=== PATIENT | male | born 1985 | race Caucasian/White ===

== ENCOUNTER 2020-12-02 14:24 | Inpatient (IN) | payer OTHER ==
[2020-12-02 16:09] VITALS: BMI 28.1
[2020-12-02] MEDS ORDERED: METHOCARBAMOL 500 MG TABLET PO PRN (18:12)
[2020-12-02] MEDS ORDERED: MAG HYDROX/AL HYDROX/SIMETH 30 ML UNIT-DOSE CUP PO PRN (18:12)
[2020-12-02] MEDS ORDERED: BISMUTH SUBSALICYLATE 524 MG/30 ML PO PRN (18:12)
[2020-12-02] MEDS ORDERED: MAGNESIUM HYDROX 2400MG/30ML ORAL SUSPENSION 30 ML CUP PO PRN (18:12)
[2020-12-02] MEDS ORDERED: MENTHOL/PHENOL 1 EACH UD MM PRN (18:12)
[2020-12-02] MEDS ORDERED: ONDANSETRON *ODT* 4 MG TABLET SL PRN (18:12)
[2020-12-02] MEDS ORDERED: hydrOXYzine PAMOATE 25 MG CAPSULE (FP) PO PRN (18:12)
[2020-12-02] MEDS ORDERED: IBUPROFEN 400 MG TABLET (FP) PO PRN (18:12)
[2020-12-02] MEDS ORDERED: MAGNESIUM CITRATE 300 ML BOTTLE PO PRN (18:12)
[2020-12-02] MEDS ORDERED: NICOTINE POLACRILEX 2 MG GUM BUC PRN (18:12)
[2020-12-02] MEDS ORDERED: ACETAMINOPHEN 325 MG TABLET (FP) PO PRN ×2 (18:12)
[2020-12-02] MEDS: diazePAM 5 MG TABLET PO SCH ×2 (19:43→23:17)
[2020-12-02] MEDS: diazePAM 5 MG TABLET PO PRN (19:50)
[2020-12-02] MEDS: MELATONIN 5 MG TABLETS PO SCH (23:15)
[2020-12-02] MEDS: THIAMINE HCL 100 MG TABLET (FP) PO SCH (23:16)
[2020-12-03] MEDS: diazePAM 5 MG TABLET PO SCH ×4 (06:21→23:00)
[2020-12-03 09:54] LABS: HEMATOCRIT 37.9 % (35.4-49); MCH 30.5 pg (25.7-33.7); MCHC 34.3 g/dl (32.0-35.9); MEAN PLT VOLUME 9.2 fl (7.5-11.1); PLATELET COUNT 228 K/MM3 (134-434); RBC 4.26 M/mm3 (4.00-5.60); RDW 13.6 % (11.9-15.9); WHITE BLOOD COUNT 7.6 K/mm3 (4.0-10.0)
[2020-12-03 09:57] LABS: BLOOD UREA NITROGEN 9.5 mg/dL (7-18)
[2020-12-03 09:59] LABS: ALBUMIN 3.3 g/dl (3.4-5.0)
[2020-12-03] MEDS ORDERED: methaDONE HCL 10 MG TABLET (FOR DETOX USE ONLY) PO ONE (10:00)
[2020-12-03 10:02] LABS: CALCIUM 8.8 mg/dL (8.5-10.1)
[2020-12-03 10:08] LABS: BILIRUBIN,TOTAL 0.2 mg/dL (0.2-1); CREATININE 0.8 mg/dL (0.55-1.3)
[2020-12-03] MEDS: PRENATAL VITAMINS W/ FOLIC ACID TABLET (FP) PO SCH (11:36)
[2020-12-03] MEDS: THIAMINE HCL 100 MG TABLET (FP) PO SCH (23:00)
[2020-12-03] MEDS: MELATONIN 5 MG TABLETS PO SCH (23:00)
[2020-12-04] MEDS: diazePAM 5 MG TABLET PO SCH ×3 (06:48→22:57)
[2020-12-04] MEDS ORDERED: methaDONE HCL 10 MG TABLET PO SCH (09:00)
[2020-12-04] MEDS ORDERED: methaDONE 40 MG, methaDONE 10 MG PO ONE (09:30)
[2020-12-04] MEDS ORDERED: methaDONE HCL 10 MG TABLET (FOR DETOX USE ONLY) PO ONE (10:00)
[2020-12-04] MEDS: PRENATAL VITAMINS W/ FOLIC ACID TABLET (FP) PO SCH (10:17)
[2020-12-04] MEDS ORDERED: methaDONE HCL 10 MG TABLET ONE (10:18)
[2020-12-04] MEDS ORDERED: methaDONE HCL 40 MG DISPERSABLE TABLET ONE (10:19)
[2020-12-04] MEDS: diazePAM 5 MG TABLET PO PRN (17:44)
[2020-12-04] MEDS: MELATONIN 5 MG TABLETS PO SCH (22:57)
[2020-12-04] MEDS: THIAMINE HCL 100 MG TABLET (FP) PO SCH (22:57)
[2020-12-05] MEDS ORDERED: methaDONE HCL 10 MG TABLET ONE (04:51)
[2020-12-05] MEDS ORDERED: methaDONE HCL 40 MG DISPERSABLE TABLET ONE (04:52)
[2020-12-05] MEDS: methaDONE 40 MG, methaDONE 10 MG PO SCH (06:02)
[2020-12-05] MEDS: diazePAM 5 MG TABLET PO SCH ×2 (06:02→17:56)
[2020-12-05] MEDS ORDERED: methaDONE HCL 10 MG TABLET (FOR DETOX USE ONLY) PO ONE (10:00)
[2020-12-05] MEDS: PRENATAL VITAMINS W/ FOLIC ACID TABLET (FP) PO SCH (10:40)
[2020-12-05] MEDS: diazePAM 5 MG TABLET PO PRN (10:41)
[2020-12-05 21:17] VITALS: PULSE 66
[2020-12-05] MEDS: MELATONIN 5 MG TABLETS PO SCH (22:29)
[2020-12-05] MEDS: THIAMINE HCL 100 MG TABLET (FP) PO SCH (22:29)
[2020-12-06] MEDS ORDERED: methaDONE HCL 10 MG TABLET ONE (04:36)
[2020-12-06] MEDS ORDERED: methaDONE HCL 40 MG DISPERSABLE TABLET ONE (04:36)
[2020-12-06] MEDS: methaDONE 40 MG, methaDONE 10 MG PO SCH (05:07)
[2020-12-06] MEDS ORDERED: diazePAM 5 MG TABLET PO ONE (06:00)
[2020-12-06 06:48] VITALS: BP 101/70; TEMP 98.7
== END 2020-12-06 08:55 | disposition home or self-care (01) | DRG 773 ==
LOC: YASAS 14:24 → Y6N 18:23
PROVIDERS: ADMIT Allergy & Immunology; ATTEND Allergy & Immunology
PROC: HZ2ZZZZ Detoxification Services for Substance Abuse Treatment (ICD-10-PCS; principal; 2020-12-02)
DX: F11.23 Opioid dependence with withdrawal (principal); F13.20 Sedative, hypnotic or anxiolytic dependence, uncomplicated; F14.10 Cocaine abuse, uncomplicated; F12.20 Cannabis dependence, uncomplicated; F17.210 Nicotine dependence, cigarettes, uncomplicated; F90.9 Attention-deficit hyperactivity disorder, unspecified type; F41.9 Anxiety disorder, unspecified; Z86.19 Personal history of other infectious and parasitic diseases; Z59.0 Homelessness
CPT/HCPCS: 11042; 11045; 15271; 15272; 36415; 80053; 85027; 86780; C9803; Q4196; U0003; U0005

== ENCOUNTER 2021-04-19 22:14 | Inpatient (IN) | payer OTHER ==
[2021-04-19 22:40] VITALS: BMI 24.0
[2021-04-19] MEDS ORDERED: MAGNESIUM CITRATE 300 ML BOTTLE PO PRN (23:01)
[2021-04-19] MEDS ORDERED: LOPERAMIDE HCL 2 MG CAPSULE PO PRN (23:01)
[2021-04-19] MEDS ORDERED: MENTHOL/PHENOL 1 EACH UD MM PRN (23:01)
[2021-04-19] MEDS ORDERED: BISMUTH SUBSALICYLATE 524 MG/30 ML PO PRN (23:01)
[2021-04-19] MEDS ORDERED: ACETAMINOPHEN 325 MG TABLET (FP) PO PRN ×2 (23:01)
[2021-04-19] MEDS ORDERED: MAGNESIUM HYDROX 2400MG/30ML ORAL SUSPENSION 30 ML CUP PO PRN (23:01)
[2021-04-19] MEDS ORDERED: ONDANSETRON *ODT* 4 MG TABLET SL PRN (23:01)
[2021-04-19] MEDS ORDERED: MAG HYDROX/AL HYDROX/SIMETH 30 ML UNIT-DOSE CUP PO PRN (23:01)
[2021-04-19] MEDS ORDERED: BUPRENORPHINE HCL 2 MG TAB.SUBL SL ONE (23:05)
[2021-04-19] MEDS ORDERED: cloNIDine HCL 0.1 MG TABLET PO PRN (23:09)
[2021-04-20] MEDS ORDERED: BUPRENORPHINE HCL 2 MG TAB.SUBL SL ONE (01:45)
[2021-04-20] MEDS ORDERED: BUPRENORPHINE/NALOXONE 8 MG/2 MG FILM PACKET SL SCH (10:00)
[2021-04-20] MEDS ORDERED: methaDONE HCL 10 MG TABLET (FOR DETOX USE ONLY) PO ONE (11:00)
[2021-04-20 11:52] LABS: HEMATOCRIT 39.5 % (35.4-49); HEMOGLOBIN 13.3 GM/dL (11.7-16.9); MCH 29.4 pg (25.7-33.7); MCHC 33.8 g/dl (32.0-35.9); MEAN CELL VOLUME 86.8 fl (80-96); MEAN PLT VOLUME 10.4 fl (7.5-11.1); PLATELET COUNT 304 10^3/uL (134-434); RBC 4.54 M/mm3 (4.00-5.60); RDW 13.3 % (11.9-15.9); WHITE BLOOD COUNT 6.4 K/mm3 (4.0-10.0)
[2021-04-20] MEDS: PRENATAL VITAMINS W/ FOLIC ACID TABLET (FP) PO SCH (12:10)
[2021-04-20] MEDS: NICOTINE 14 MG/24 HOURS TOPICAL PATCH TD SCH (12:11)
[2021-04-20] MEDS: METHOCARBAMOL 500 MG TABLET PO PRN (12:12)
[2021-04-20 12:17] LABS: ALBUMIN 3.2 g/dl (3.4-5.0); BLOOD UREA NITROGEN 10.6 mg/dL (7-18); CALCIUM 8.7 mg/dL (8.5-10.1)
[2021-04-20 12:20] LABS: CREATININE 0.7 mg/dL (0.55-1.3)
[2021-04-20 12:22] LABS: BILIRUBIN,TOTAL 0.3 mg/dL (0.2-1)
[2021-04-20] MEDS: diazePAM 5 MG TABLET PO PRN ×2 (14:29→22:32)
[2021-04-20] MEDS: IBUPROFEN 400 MG TABLET (FP) PO PRN (22:31)
[2021-04-20] MEDS: cloNIDine HCL 0.1 MG TABLET PO PRN (22:31)
[2021-04-20] MEDS: THIAMINE HCL 100 MG TABLET (FP) PO SCH (22:31)
[2021-04-20] MEDS: MELATONIN 5 MG TABLETS PO SCH (22:32)
[2021-04-21] MEDS ORDERED: methaDONE HCL 10 MG TABLET (FOR DETOX USE ONLY) ONE (09:59)
[2021-04-21] MEDS ORDERED: EMTRICITABINE 200MG/TENOFOVIR 300MG PO SCH (10:00)
[2021-04-21] MEDS: METHOCARBAMOL 500 MG TABLET PO PRN ×2 (11:01→22:33)
[2021-04-21] MEDS: diazePAM 5 MG TABLET PO PRN ×2 (11:01→22:33)
[2021-04-21] MEDS: hydrOXYzine PAMOATE 25 MG CAPSULE (FP) PO PRN ×2 (11:01→22:33)
[2021-04-21] MEDS: NICOTINE 14 MG/24 HOURS TOPICAL PATCH TD SCH (11:02)
[2021-04-21] MEDS: PRENATAL VITAMINS W/ FOLIC ACID TABLET (FP) PO SCH (11:02)
[2021-04-21] MEDS: THIAMINE HCL 100 MG TABLET (FP) PO SCH (22:33)
[2021-04-21] MEDS: RALTEGRAVIR 400 MG PO SCH (22:33)
[2021-04-21] MEDS: MELATONIN 5 MG TABLETS PO SCH (22:33)
[2021-04-22] MEDS: diazePAM 5 MG TABLET PO PRN ×4 (06:09→22:28)
[2021-04-22] MEDS: IBUPROFEN 400 MG TABLET (FP) PO PRN (06:10)
[2021-04-22] MEDS ORDERED: methaDONE HCL 10 MG TABLET (FOR DETOX USE ONLY) PO ONE ×2 (10:00→11:21)
[2021-04-22] MEDS: PRENATAL VITAMINS W/ FOLIC ACID TABLET (FP) PO SCH (10:25)
[2021-04-22] MEDS: NICOTINE 14 MG/24 HOURS TOPICAL PATCH TD SCH (10:25)
[2021-04-22] MEDS: RALTEGRAVIR 400 MG PO SCH ×2 (10:26→22:28)
[2021-04-22] MEDS: PATIENT,S OWN MED:EMTRICITABINE 200MG/TENOFOVIR 300MG PO SCH (10:38)
[2021-04-22] MEDS ORDERED: diazePAM 5 MG TABLET PO ONE (11:22)
[2021-04-22] MEDS: cloNIDine HCL 0.1 MG TABLET PO PRN (22:27)
[2021-04-22] MEDS: METHOCARBAMOL 500 MG TABLET PO PRN (22:27)
[2021-04-22] MEDS: MELATONIN 5 MG TABLETS PO SCH (22:27)
[2021-04-22] MEDS: THIAMINE HCL 100 MG TABLET (FP) PO SCH (22:27)
[2021-04-23] MEDS: diazePAM 5 MG TABLET PO PRN ×3 (08:47→22:11)
[2021-04-23] MEDS ORDERED: methaDONE HCL 10 MG TABLET (FOR DETOX USE ONLY) ONE (09:53)
[2021-04-23] MEDS: RALTEGRAVIR 400 MG PO SCH ×2 (10:32→22:10)
[2021-04-23] MEDS: PATIENT,S OWN MED:EMTRICITABINE 200MG/TENOFOVIR 300MG PO SCH (10:32)
[2021-04-23] MEDS: NICOTINE 14 MG/24 HOURS TOPICAL PATCH TD SCH (10:33)
[2021-04-23] MEDS: METHOCARBAMOL 500 MG TABLET PO PRN ×2 (10:33→22:10)
[2021-04-23] MEDS: PRENATAL VITAMINS W/ FOLIC ACID TABLET (FP) PO SCH (10:35)
[2021-04-23] MEDS: IBUPROFEN 400 MG TABLET (FP) PO PRN (22:10)
[2021-04-23] MEDS: hydrOXYzine PAMOATE 25 MG CAPSULE (FP) PO PRN (22:10)
[2021-04-23] MEDS: THIAMINE HCL 100 MG TABLET (FP) PO SCH (22:10)
[2021-04-23] MEDS: MELATONIN 5 MG TABLETS PO SCH (22:11)
[2021-04-24] MEDS ORDERED: methaDONE HCL 10 MG TABLET (FOR DETOX USE ONLY) PO ONE (10:00)
[2021-04-24] MEDS: RALTEGRAVIR 400 MG PO SCH ×2 (10:02→22:06)
[2021-04-24] MEDS: PATIENT,S OWN MED:EMTRICITABINE 200MG/TENOFOVIR 300MG PO SCH (10:02)
[2021-04-24] MEDS: PRENATAL VITAMINS W/ FOLIC ACID TABLET (FP) PO SCH (10:02)
[2021-04-24] MEDS: METHOCARBAMOL 500 MG TABLET PO PRN ×2 (10:03→22:08)
[2021-04-24] MEDS: IBUPROFEN 400 MG TABLET (FP) PO PRN (10:03)
[2021-04-24] MEDS: hydrOXYzine PAMOATE 25 MG CAPSULE (FP) PO PRN ×2 (10:05→22:08)
[2021-04-24] MEDS: diazePAM 5 MG TABLET PO PRN ×2 (10:05→22:09)
[2021-04-24] MEDS: NICOTINE 14 MG/24 HOURS TOPICAL PATCH TD SCH (10:07)
[2021-04-24 21:47] VITALS: BP 117/78; PULSE 105; TEMP 98
[2021-04-24] MEDS: MELATONIN 5 MG TABLETS PO SCH (22:06)
[2021-04-24] MEDS: THIAMINE HCL 100 MG TABLET (FP) PO SCH (22:06)
[2021-04-25] MEDS: IBUPROFEN 400 MG TABLET (FP) PO PRN (05:59)
== END 2021-04-25 07:00 | disposition home or self-care (01) | DRG 773 ==
LOC: YASAS 22:14 → Y3N 04-20 00:25 → UNDOADMIN 04-20 00:25
PROVIDERS: ADMIT Allergy & Immunology; ATTEND Allergy & Immunology
PROC: HZ2ZZZZ Detoxification Services for Substance Abuse Treatment (ICD-10-PCS; principal; 2021-04-20)
DX: F11.23 Opioid dependence with withdrawal (principal); F14.20 Cocaine dependence, uncomplicated; F12.20 Cannabis dependence, uncomplicated; F17.210 Nicotine dependence, cigarettes, uncomplicated; F41.9 Anxiety disorder, unspecified; Z86.19 Personal history of other infectious and parasitic diseases; Z59.01 Sheltered homelessness
CPT/HCPCS: 36415; 80053; 85027; 86780; C9803; J0735; Q0162; U0003; U0005

== ENCOUNTER 2021-05-09 12:13 | Inpatient (IN) | payer OTHER ==
[2021-05-09 13:09] VITALS: BMI 26.1
[2021-05-09] MEDS ORDERED: MAGNESIUM CITRATE 300 ML BOTTLE PO PRN (13:51)
[2021-05-09] MEDS ORDERED: MAGNESIUM HYDROX 2400MG/30ML ORAL SUSPENSION 30 ML CUP PO PRN (13:51)
[2021-05-09] MEDS ORDERED: ACETAMINOPHEN 325 MG TABLET (FP) PO PRN ×2 (13:51)
[2021-05-09] MEDS ORDERED: MAG HYDROX/AL HYDROX/SIMETH 30 ML UNIT-DOSE CUP PO PRN (13:51)
[2021-05-09] MEDS ORDERED: IBUPROFEN 400 MG TABLET (FP) PO PRN (13:51)
[2021-05-09] MEDS ORDERED: BISMUTH SUBSALICYLATE 524 MG/30 ML PO PRN (13:51)
[2021-05-09] MEDS ORDERED: MENTHOL/PHENOL 1 EACH UD MM PRN (13:51)
[2021-05-09] MEDS ORDERED: ONDANSETRON *ODT* 4 MG TABLET SL PRN (13:51)
[2021-05-09] MEDS: BACITRACIN 15 GM TUBE TOPICAL OINTMENT TP SCH ×2 (15:31→22:58)
[2021-05-09] MEDS: METHOCARBAMOL 500 MG TABLET PO PRN (19:29)
[2021-05-09] MEDS: hydrOXYzine PAMOATE 25 MG CAPSULE (FP) PO PRN ×2 (19:29→22:57)
[2021-05-09] MEDS: THIAMINE HCL 100 MG TABLET (FP) PO SCH (22:57)
[2021-05-09] MEDS: MELATONIN 5 MG TABLETS PO SCH (22:57)
[2021-05-10] MEDS ORDERED: methaDONE HCL 10 MG TABLET (FOR DETOX USE ONLY) PO ONE (09:19)
[2021-05-10] MEDS ORDERED: diazePAM 5 MG TABLET PO PRN (09:19)
[2021-05-10] MEDS ORDERED: cloNIDine HCL 0.1 MG TABLET PO PRN (09:19)
[2021-05-10] MEDS: diazePAM 5 MG TABLET PO SCH ×3 (10:10→22:25)
[2021-05-10] MEDS: METHOCARBAMOL 500 MG TABLET PO PRN (10:10)
[2021-05-10] MEDS: PRENATAL VITAMINS W/ FOLIC ACID TABLET (FP) PO SCH (10:10)
[2021-05-10] MEDS: BACITRACIN 15 GM TUBE TOPICAL OINTMENT TP SCH ×2 (10:11→22:33)
[2021-05-10] MEDS: NICOTINE 14 MG/24 HOURS TOPICAL PATCH TD SCH (10:11)
[2021-05-10 12:18] LABS: HEMATOCRIT 40.5 % (35.4-49); HEMOGLOBIN 13.9 GM/dL (11.7-16.9); MCH 30.2 pg (25.7-33.7); MCHC 34.3 g/dl (32.0-35.9); MEAN CELL VOLUME 87.9 fl (80-96); MEAN PLT VOLUME 9.3 fl (7.5-11.1); PLATELET COUNT 300 10^3/uL (134-434); RBC 4.61 M/mm3 (4.00-5.60); RDW 14.5 % (11.9-15.9); WHITE BLOOD COUNT 4.5 K/mm3 (4.0-10.0)
[2021-05-10 12:19] LABS: CALCIUM 8.9 mg/dL (8.5-10.1)
[2021-05-10 12:20] LABS: ALBUMIN 3.4 g/dl (3.4-5.0)
[2021-05-10 12:23] LABS: BLOOD UREA NITROGEN 10.1 mg/dL (7-18)
[2021-05-10 12:25] LABS: BILIRUBIN,TOTAL 0.3 mg/dL (0.2-1); TOT PROT 7.2 g/dl (6.4-8.2)
[2021-05-10 12:26] LABS: CREATININE 0.8 mg/dL (0.55-1.3)
[2021-05-10] MEDS: amLODIPine BESYLATE 5 MG TABLET (FP) PO SCH (14:27)
[2021-05-10] MEDS: MELATONIN 5 MG TABLETS PO SCH (22:25)
[2021-05-10] MEDS: THIAMINE HCL 100 MG TABLET (FP) PO SCH (22:25)
[2021-05-11] MEDS: diazePAM 5 MG TABLET PO SCH ×4 (06:14→22:24)
[2021-05-11] MEDS ORDERED: methaDONE HCL 10 MG TABLET (FOR DETOX USE ONLY) ONE (09:40)
[2021-05-11] MEDS: PRENATAL VITAMINS W/ FOLIC ACID TABLET (FP) PO SCH (10:28)
[2021-05-11] MEDS: amLODIPine BESYLATE 5 MG TABLET (FP) PO SCH (10:30)
[2021-05-11] MEDS: METHOCARBAMOL 500 MG TABLET PO PRN (10:30)
[2021-05-11] MEDS: hydrOXYzine PAMOATE 25 MG CAPSULE (FP) PO PRN (10:30)
[2021-05-11] MEDS: NICOTINE 14 MG/24 HOURS TOPICAL PATCH TD SCH (10:31)
[2021-05-11] MEDS: BACITRACIN 15 GM TUBE TOPICAL OINTMENT TP SCH ×2 (10:44→22:25)
[2021-05-11] MEDS: THIAMINE HCL 100 MG TABLET (FP) PO SCH (22:22)
[2021-05-11] MEDS: MELATONIN 5 MG TABLETS PO SCH (22:25)
[2021-05-12] MEDS: diazePAM 5 MG TABLET PO SCH ×3 (05:59→22:38)
[2021-05-12] MEDS ORDERED: methaDONE HCL 10 MG TABLET (FOR DETOX USE ONLY) PO ONE (10:00)
[2021-05-12] MEDS: PRENATAL VITAMINS W/ FOLIC ACID TABLET (FP) PO SCH (10:28)
[2021-05-12] MEDS: hydrOXYzine PAMOATE 25 MG CAPSULE (FP) PO PRN ×2 (10:28→15:09)
[2021-05-12] MEDS: BACITRACIN 15 GM TUBE TOPICAL OINTMENT TP SCH ×2 (10:28→22:36)
[2021-05-12] MEDS: NICOTINE 14 MG/24 HOURS TOPICAL PATCH TD SCH (10:32)
[2021-05-12] MEDS: amLODIPine BESYLATE 5 MG TABLET (FP) PO SCH (10:35)
[2021-05-12] MEDS ORDERED: EMTRICITABINE 200MG/TENOFOVIR 300MG PO SCH (14:45)
[2021-05-12] MEDS ORDERED: MELATONIN 5 MG TABLETS PO SCH (22:00)
[2021-05-12] MEDS: THIAMINE HCL 100 MG TABLET (FP) PO SCH (22:37)
[2021-05-12] MEDS: RALTEGRAVIR POTASSIUM 400 MG PO SCH (22:38)
[2021-05-13] MEDS ORDERED: diazePAM 5 MG TABLET PO SCH (06:00)
[2021-05-13] MEDS ORDERED: methaDONE HCL 10 MG TABLET (FOR DETOX USE ONLY) ONE (09:49)
[2021-05-13] MEDS: PRENATAL VITAMINS W/ FOLIC ACID TABLET (FP) PO SCH (10:27)
[2021-05-13] MEDS: NICOTINE 14 MG/24 HOURS TOPICAL PATCH TD SCH (10:30)
[2021-05-13] MEDS: amLODIPine BESYLATE 5 MG TABLET (FP) PO SCH (10:30)
[2021-05-13] MEDS: RALTEGRAVIR POTASSIUM 400 MG PO SCH (10:31)
[2021-05-13] MEDS: BACITRACIN 15 GM TUBE TOPICAL OINTMENT TP SCH (10:50)
[2021-05-13] MEDS ORDERED: NICOTINE 10 MG CARTRIDGE (INHALER) IH PRN (13:04)
[2021-05-13 14:18] VITALS: BP 107/69; PULSE 100; TEMP 97.4
[2021-05-14] MEDS ORDERED: diazePAM 5 MG TABLET PO ONE (06:00)
[2021-05-14] MEDS ORDERED: methaDONE HCL 10 MG TABLET (FOR DETOX USE ONLY) PO ONE (10:00)
== END 2021-05-13 15:48 | disposition left against medical advice (07) | DRG 770 ==
LOC: YASAS 12:13 → Y6N 14:41
PROVIDERS: ADMIT Allergy & Immunology; ATTEND Allergy & Immunology
PROC: HZ2ZZZZ Detoxification Services for Substance Abuse Treatment (ICD-10-PCS; principal; 2021-05-09)
DX: F11.23 Opioid dependence with withdrawal (principal); F13.20 Sedative, hypnotic or anxiolytic dependence, uncomplicated; F14.20 Cocaine dependence, uncomplicated; F12.20 Cannabis dependence, uncomplicated; F17.210 Nicotine dependence, cigarettes, uncomplicated; F19.282 Other psychoactive substance dependence with psychoactive substance-induced sleep disorder; F31.9 Bipolar disorder, unspecified; F41.9 Anxiety disorder, unspecified; F90.9 Attention-deficit hyperactivity disorder, unspecified type; F43.10 Post-traumatic stress disorder, unspecified; I10 Essential (primary) hypertension; Z62.810 Personal history of physical and sexual abuse in childhood; Z86.19 Personal history of other infectious and parasitic diseases; Z88.0 Allergy status to penicillin; Z59.00 Homelessness unspecified
CPT/HCPCS: 36415; 80053; 85027; 86780; C9803; J0735; U0003; U0005

== ENCOUNTER 2021-07-13 13:35 | Inpatient (IN) | payer OTHER ==
[2021-07-13] MEDS ORDERED: BISMUTH SUBSALICYLATE 262 MG/15 ML BTL PO PRN (14:06)
[2021-07-13] MEDS ORDERED: IBUPROFEN 400 MG TABLET (FP) PO PRN (14:06)
[2021-07-13] MEDS ORDERED: BUPRENORPHINE HCL 150 MCG, BUPRENORPHINE HCL 75 MCG BC ONE ×2 (14:06→18:45)
[2021-07-13] MEDS ORDERED: MAGNESIUM HYDROX 2400MG/30ML ORAL SUSPENSION 30 ML CUP PO PRN (14:06)
[2021-07-13] MEDS ORDERED: ACETAMINOPHEN 325 MG TABLET (FP) PO PRN ×2 (14:06)
[2021-07-13] MEDS ORDERED: ONDANSETRON *ODT* 4 MG TABLET SL PRN (14:06)
[2021-07-13] MEDS ORDERED: MENTHOL/PHENOL 1 EACH UD MM PRN (14:06)
[2021-07-13] MEDS ORDERED: MAGNESIUM CITRATE 300 ML BOTTLE PO PRN (14:06)
[2021-07-13] MEDS ORDERED: MAG HYDROX/AL HYDROX/SIMETH 30 ML UNIT-DOSE CUP PO PRN (14:06)
[2021-07-13] MEDS ORDERED: NICOTINE 10 MG CARTRIDGE (INHALER) IH PRN (14:06)
[2021-07-13 14:18] VITALS: BMI 24.9
[2021-07-13] MEDS ORDERED: TENOFOVIR DISOPROXIL FUMARATE 300 MG TABLET PO SCH (16:15)
[2021-07-13] MEDS ORDERED: EMTRICITABINE 200 MG CAPSULE PO SCH (16:15)
[2021-07-13 17:32] LABS: HEMATOCRIT 42.9 % (35.4-49); HEMOGLOBIN 14.1 GM/dL (11.7-16.9); MCH 29.2 pg (25.7-33.7); MEAN CELL VOLUME 88.6 fl (80-96); MEAN PLT VOLUME 8.9 fl (7.5-11.1); PLATELET COUNT 351 10^3/uL (134-434); RBC 4.84 M/mm3 (4.00-5.60); RDW 13.8 % (11.9-15.9); WHITE BLOOD COUNT 7.3 K/mm3 (4.0-10.0)
[2021-07-13 18:02] LABS: BLOOD UREA NITROGEN 10.9 mg/dL (7-18)
[2021-07-13 18:07] LABS: BILIRUBIN,TOTAL 0.6 mg/dL (0.2-1); TOT PROT 7.8 g/dl (6.4-8.2)
[2021-07-13 18:09] LABS: CALCIUM 9.5 mg/dL (8.5-10.1)
[2021-07-13] MEDS ORDERED: BUPRENORPHINE HCL 150 MCG FILM BC ONE (19:24)
[2021-07-13] MEDS ORDERED: BUPRENORPHINE HCL 75 MCG FILM BC ONE (19:25)
[2021-07-13] MEDS: PRENATAL VITAMINS W/ FOLIC ACID TABLET (FP) PO SCH (19:38)
[2021-07-13] MEDS: hydrOXYzine PAMOATE 25 MG CAPSULE (FP) PO SCH ×2 (19:38→22:32)
[2021-07-13] MEDS: NICOTINE 14 MG/24 HOURS TOPICAL PATCH TD SCH (19:39)
[2021-07-13] MEDS ORDERED: MELATONIN 5 MG TABLETS PO SCH (22:00)
[2021-07-13] MEDS: THIAMINE HCL 100 MG TABLET (FP) PO SCH (22:32)
[2021-07-13] MEDS: RALTEGRAVIR POTASSIUM 400 MG TAB PO SCH (22:32)
[2021-07-14] MEDS ORDERED: BUPRENORPHINE HCL 150 MCG FILM BC ONE ×2 (04:32→17:25)
[2021-07-14] MEDS ORDERED: BUPRENORPHINE HCL 75 MCG FILM BC ONE ×2 (04:33→17:26)
[2021-07-14] MEDS: BUPRENORPHINE HCL 150 MCG, BUPRENORPHINE HCL 75 MCG BC SCH ×2 (06:14→17:41)
[2021-07-14] MEDS: hydrOXYzine PAMOATE 25 MG CAPSULE (FP) PO SCH (06:14)
[2021-07-14] MEDS: PRENATAL VITAMINS W/ FOLIC ACID TABLET (FP) PO SCH (10:35)
[2021-07-14] MEDS: RALTEGRAVIR POTASSIUM 400 MG TAB PO SCH ×2 (10:35→22:41)
[2021-07-14] MEDS: EMTRICITABINE 200MG/TENOFOVIR 300MG PO SCH (10:36)
[2021-07-14] MEDS: cloNIDine HCL 0.1 MG TABLET PO PRN ×3 (10:37→22:41)
[2021-07-14] MEDS: diazePAM 5 MG TABLET PO PRN ×3 (10:37→22:42)
[2021-07-14] MEDS: NICOTINE 14 MG/24 HOURS TOPICAL PATCH TD SCH (10:38)
[2021-07-14] MEDS: hydrOXYzine PAMOATE 50 MG CAPSULE (FP) PO SCH ×5 (10:39→22:42)
[2021-07-14 15:58] LABS: HIV INTERPRETATION NEGATIVE (NEGATIVE)
[2021-07-14] MEDS: MELATONIN 5 MG TABLETS PO SCH (22:41)
[2021-07-14] MEDS: THIAMINE HCL 100 MG TABLET (FP) PO SCH (22:41)
[2021-07-15] MEDS: hydrOXYzine PAMOATE 50 MG CAPSULE (FP) PO SCH ×5 (06:26→23:19)
[2021-07-15] MEDS: diazePAM 5 MG TABLET PO PRN ×4 (06:28→22:29)
[2021-07-15] MEDS: BUPRENORPHINE HCL 450 MCG FILM BC SCH ×2 (06:32→18:24)
[2021-07-15] MEDS: RALTEGRAVIR POTASSIUM 400 MG TAB PO SCH ×2 (09:38→23:18)
[2021-07-15] MEDS: PRENATAL VITAMINS W/ FOLIC ACID TABLET (FP) PO SCH (09:38)
[2021-07-15] MEDS: NICOTINE 14 MG/24 HOURS TOPICAL PATCH TD SCH (09:38)
[2021-07-15] MEDS: EMTRICITABINE 200MG/TENOFOVIR 300MG PO SCH (09:39)
[2021-07-15] MEDS: METHOCARBAMOL 500 MG TABLET PO PRN (22:28)
[2021-07-15] MEDS: MELATONIN 5 MG TABLETS PO SCH (23:18)
[2021-07-15] MEDS: THIAMINE HCL 100 MG TABLET (FP) PO SCH (23:19)
[2021-07-16] MEDS: BUPRENORPHINE/NALOXONE 4 MG/1 MG FILM PACKET SL SCH ×2 (05:43→17:47)
[2021-07-16] MEDS: diazePAM 5 MG TABLET PO PRN ×3 (05:44→15:17)
[2021-07-16] MEDS: hydrOXYzine PAMOATE 50 MG CAPSULE (FP) PO SCH ×5 (05:50→17:48)
[2021-07-16] MEDS: EMTRICITABINE 200MG/TENOFOVIR 300MG PO SCH (10:38)
[2021-07-16] MEDS: RALTEGRAVIR POTASSIUM 400 MG TAB PO SCH (10:38)
[2021-07-16] MEDS: NICOTINE 14 MG/24 HOURS TOPICAL PATCH TD SCH (10:40)
[2021-07-16] MEDS: PRENATAL VITAMINS W/ FOLIC ACID TABLET (FP) PO SCH (10:40)
[2021-07-16] MEDS: METHOCARBAMOL 500 MG TABLET PO PRN (15:16)
[2021-07-16 18:21] VITALS: BP 127/92; PULSE 108; TEMP 97.3
[2021-07-17] MEDS ORDERED: BUPRENORPHINE/NALOXONE 8 MG/2 MG FILM PACKET SL ONE (06:00)
== END 2021-07-16 18:50 | disposition home or self-care (01) | DRG 773 ==
LOC: YASAS 13:35 → Y3N 15:57
PROVIDERS: ADMIT Allergy & Immunology; ATTEND Allergy & Immunology
PROC: HZ2ZZZZ Detoxification Services for Substance Abuse Treatment (ICD-10-PCS; principal; 2021-07-13)
DX: F11.23 Opioid dependence with withdrawal (principal); F14.20 Cocaine dependence, uncomplicated; F13.20 Sedative, hypnotic or anxiolytic dependence, uncomplicated; F12.20 Cannabis dependence, uncomplicated; F17.210 Nicotine dependence, cigarettes, uncomplicated; F31.9 Bipolar disorder, unspecified; F19.280 Other psychoactive substance dependence with psychoactive substance-induced anxiety disorder; F19.282 Other psychoactive substance dependence with psychoactive substance-induced sleep disorder; F41.9 Anxiety disorder, unspecified; F90.9 Attention-deficit hyperactivity disorder, unspecified type; I10 Essential (primary) hypertension; Z62.810 Personal history of physical and sexual abuse in childhood; Z77.21 Contact with and (suspected) exposure to potentially hazardous body fluids; W46.1XXD Contact with contaminated hypodermic needle, subsequent encounter; Z86.19 Personal history of other infectious and parasitic diseases; Z56.0 Unemployment, unspecified; Z59.00 Homelessness unspecified; Z88.0 Allergy status to penicillin
CPT/HCPCS: 36415; 80053; 85027; 86780; 87389; C9803; J0735; U0003; U0005

== ENCOUNTER 2022-04-12 01:42 | Inpatient (IN) | payer OTHER ==
[2022-04-12 02:20] VITALS: BMI 28.7
[2022-04-12] MEDS ORDERED: IBUPROFEN 400 MG TABLET (FP) PO PRN (02:58)
[2022-04-12] MEDS ORDERED: DICYCLOMINE HCL 10 MG CAPSULE PO PRN (02:58)
[2022-04-12] MEDS ORDERED: ONDANSETRON *ODT* 4 MG TABLET SL PRN (02:58)
[2022-04-12] MEDS ORDERED: BISMUTH SUBSALICYLATE 524 MG/30 ML PO PRN (02:58)
[2022-04-12] MEDS ORDERED: MAGNESIUM HYDROX 2400MG/30ML ORAL SUSPENSION 30 ML CUP PO PRN (02:58)
[2022-04-12] MEDS ORDERED: NALOXONE HCL (KLOXXADO) 8 MG SPRAY NS PRN (02:58)
[2022-04-12] MEDS ORDERED: MAGNESIUM CITRATE 300 ML BOTTLE PO PRN (02:58)
[2022-04-12] MEDS ORDERED: BENZOCAINE/MENTHOL (CHLORASEPTIC ) LOZENGE MM PRN (02:58)
[2022-04-12] MEDS ORDERED: NICOTINE POLACRILEX 2 MG GUM BUC PRN (02:58)
[2022-04-12] MEDS ORDERED: MAG HYDROX/AL HYDROX/SIMETH 30 ML UNIT-DOSE CUP PO PRN (02:58)
[2022-04-12] MEDS ORDERED: ACETAMINOPHEN 325 MG TABLET (FP) PO PRN (02:58)
[2022-04-12] MEDS ORDERED: IBUPROFEN 600 MG TABLET (FP) PO PRN (02:58)
[2022-04-12] MEDS ORDERED: LOPERAMIDE HCL 2 MG CAPSULE PO PRN (02:58)
[2022-04-12] MEDS: METHOCARBAMOL 500 MG TABLET PO PRN (10:08)
[2022-04-12] MEDS: ACETAMINOPHEN 325 MG TABLET (FP) PO PRN ×2 (10:08→17:46)
[2022-04-12] MEDS: PRENATAL VITAMINS W/ FOLIC ACID TABLET (FP) PO SCH (10:09)
[2022-04-12] MEDS: NICOTINE 14 MG/24 HOURS TOPICAL PATCH TD SCH (10:09)
[2022-04-12] MEDS ORDERED: BUPRENORPHINE HCL 150 MCG, BUPRENORPHINE HCL 75 MCG BC PRN (10:12)
[2022-04-12] MEDS ORDERED: BUPRENORPHINE HCL 150 MCG, BUPRENORPHINE HCL 75 MCG BC ONE (10:45)
[2022-04-12] MEDS: diazePAM 5 MG TABLET PO PRN ×2 (10:48→17:44)
[2022-04-12] MEDS ORDERED: cloNIDine HCL 0.1 MG TABLET PO PRN (14:12)
[2022-04-12] MEDS: THIAMINE HCL 100 MG TABLET (FP) PO SCH (22:37)
[2022-04-12] MEDS: MELATONIN 5 MG TABLETS PO SCH (22:37)
[2022-04-13] MEDS ORDERED: BUPRENORPHINE HCL 150 MCG, BUPRENORPHINE HCL 75 MCG BC PRN
[2022-04-13] MEDS: BUPRENORPHINE HCL 150 MCG, BUPRENORPHINE HCL 75 MCG BC SCH ×2 (06:22→18:49)
[2022-04-13] MEDS: METHOCARBAMOL 500 MG TABLET PO PRN (10:14)
[2022-04-13] MEDS: diazePAM 5 MG TABLET PO PRN ×2 (10:15→19:51)
[2022-04-13] MEDS: PRENATAL VITAMINS W/ FOLIC ACID TABLET (FP) PO SCH (10:17)
[2022-04-13] MEDS: NICOTINE 14 MG/24 HOURS TOPICAL PATCH TD SCH (10:18)
[2022-04-13 14:11] LABS: HEMATOCRIT 36.6 % (35.4-49); HEMOGLOBIN 12.5 GM/dL (11.7-16.9); MCH 30.3 pg (25.7-33.7); MEAN PLT VOLUME 11.7 fl (7.5-11.1); PLATELET COUNT 198 10^3/uL (134-434); RBC 4.11 M/mm3 (4.00-5.60); RDW 13.4 % (11.9-15.9); WHITE BLOOD COUNT 5.9 K/mm3 (4.0-10.0)
[2022-04-13 14:30] LABS: ALBUMIN 3.4 g/dl (3.4-5.0)
[2022-04-13 14:31] LABS: BILIRUBIN,TOTAL 0.4 mg/dL (0.2-1)
[2022-04-13 14:32] LABS: CALCIUM 8.9 mg/dL (8.5-10.1); TOT PROT 6.6 g/dl (6.4-8.2)
[2022-04-13 14:33] LABS: CREATININE 0.9 mg/dL (0.55-1.3)
[2022-04-13] MEDS: THIAMINE HCL 100 MG TABLET (FP) PO SCH (22:55)
[2022-04-13] MEDS: MELATONIN 5 MG TABLETS PO SCH (22:55)
[2022-04-14] MEDS ORDERED: BUPRENORPHINE HCL 450 MCG FILM BC PRN
[2022-04-14] MEDS ORDERED: BUPRENORPHINE HCL 450 MCG FILM BC SCH (06:00)
[2022-04-14 06:26] VITALS: BP 120/68; PULSE 61; RESP 17; TEMP 97.5
[2022-04-15] MEDS ORDERED: BUPRENORPHINE/NALOXONE 4 MG/1 MG FILM PACKET SL SCH (06:00)
[2022-04-16] MEDS ORDERED: BUPRENORPHINE/NALOXONE 8 MG/2 MG FILM PACKET SL ONE (06:00)
== END 2022-04-14 08:00 | disposition left against medical advice (07) | DRG 770 ==
LOC: YASAS 01:42 → Y6N 02:49
PROVIDERS: ADMIT Allergy & Immunology; ATTEND Surgery
PROC: HZ2ZZZZ Detoxification Services for Substance Abuse Treatment (ICD-10-PCS; principal; 2022-04-12)
DX: F11.23 Opioid dependence with withdrawal (principal); F14.20 Cocaine dependence, uncomplicated; F17.210 Nicotine dependence, cigarettes, uncomplicated; F41.9 Anxiety disorder, unspecified; F43.10 Post-traumatic stress disorder, unspecified; F90.9 Attention-deficit hyperactivity disorder, unspecified type; I10 Essential (primary) hypertension; Z86.19 Personal history of other infectious and parasitic diseases; Z88.0 Allergy status to penicillin
CPT/HCPCS: 36415; 80053; 85027; 86780; 93005; 93010; C9803-CS; U0003; U0005

== ENCOUNTER 2022-07-18 14:11 | Inpatient (IN) | payer OTHER ==
[2022-07-18 15:04] VITALS: BMI 27.0
[2022-07-18] MEDS ORDERED: P-EPHED 60MG/TRIPROLIDI 2.5MG TABLET PO PRN (16:15)
[2022-07-18] MEDS ORDERED: NICOTINE 10 MG CARTRIDGE (INHALER) IH PRN (16:15)
[2022-07-18] MEDS ORDERED: DICYCLOMINE HCL 10 MG CAPSULE PO PRN (16:15)
[2022-07-18] MEDS ORDERED: BISMUTH SUBSALICYLATE 524 MG/30 ML PO PRN (16:15)
[2022-07-18] MEDS ORDERED: POLYETHYLENE GLYCOL (HEALTHYLAX) 3350 17 GM PACKET PO PRN (16:15)
[2022-07-18] MEDS ORDERED: MAGNESIUM HYDROX 2400MG/30ML ORAL SUSPENSION 30 ML CUP PO PRN (16:15)
[2022-07-18] MEDS ORDERED: MAG HYDROX/AL HYDROX/SIMETH 30 ML UNIT-DOSE CUP PO PRN (16:15)
[2022-07-18] MEDS ORDERED: BENZOCAINE/MENTHOL (CHLORASEPTIC ) LOZENGE MM PRN (16:15)
[2022-07-18] MEDS ORDERED: LOPERAMIDE HCL 2 MG CAPSULE PO PRN (16:15)
[2022-07-18] MEDS ORDERED: hydrOXYzine PAMOATE 25 MG CAPSULE (FP) PO PRN (16:15)
[2022-07-18] MEDS ORDERED: guaiFENesin 200 MG/10 ML 10 ML UNIT-DOSE CUPS PO PRN (16:15)
[2022-07-18] MEDS ORDERED: ONDANSETRON *ODT* 4 MG TABLET SL PRN (16:15)
[2022-07-18] MEDS ORDERED: NALOXONE HCL 0.4 MG/ML VIAL IM PRN (16:15)
[2022-07-18] MEDS ORDERED: ACETAMINOPHEN 325 MG TABLET (FP) PO PRN (16:15)
[2022-07-18] MEDS ORDERED: NALOXONE HCL (KLOXXADO) 8 MG SPRAY NS PRN (16:15)
[2022-07-18] MEDS ORDERED: IBUPROFEN 400 MG TABLET (FP) PO PRN (16:15)
[2022-07-18] MEDS ORDERED: IBUPROFEN 600 MG TABLET (FP) PO PRN (16:15)
[2022-07-18] MEDS ORDERED: METHOCARBAMOL 500 MG TABLET PO PRN (16:15)
[2022-07-18] MEDS ORDERED: MELATONIN 5 MG TABLETS PO PRN (16:15)
[2022-07-18] MEDS: diazePAM 5 MG TABLET PO PRN (19:51)
[2022-07-18] MEDS: THIAMINE HCL 100 MG TABLET (FP) PO SCH (22:25)
[2022-07-19] MEDS: diazePAM 5 MG TABLET PO PRN ×4 (01:43→22:31)
[2022-07-19] MEDS ORDERED: BUPRENORPHINE HCL 150 MCG, BUPRENORPHINE HCL 75 MCG BC ONE (09:15)
[2022-07-19] MEDS ORDERED: cloNIDine HCL 0.1 MG TABLET PO ONE (09:15)
[2022-07-19] MEDS ORDERED: BUPRENORPHINE HCL 150 MCG, BUPRENORPHINE HCL 75 MCG BC PRN (09:15)
[2022-07-19] MEDS: PRENATAL VITAMINS W/ FOLIC ACID TABLET (FP) PO SCH (09:41)
[2022-07-19 11:24] LABS: HEMATOCRIT 43.2 % (35.4-49); HEMOGLOBIN 14.5 GM/dL (11.7-16.9); MCH 30.3 pg (25.7-33.7); MCHC 33.5 g/dl (32.0-35.9); MEAN CELL VOLUME 90.3 fl (80-96); MEAN PLT VOLUME 8.9 fl (7.5-11.1); PLATELET COUNT 269 10^3/uL (134-434); RBC 4.78 M/mm3 (4.00-5.60); WHITE BLOOD COUNT 8.1 K/mm3 (4.0-10.0)
[2022-07-19 12:08] LABS: ALBUMIN 3.4 g/dl (3.4-5.0)
[2022-07-19 12:09] LABS: BLOOD UREA NITROGEN 10.8 mg/dL (7-18); CALCIUM 8.7 mg/dL (8.5-10.1)
[2022-07-19 12:12] LABS: CREATININE 0.8 mg/dL (0.55-1.3)
[2022-07-19 12:13] LABS: BILIRUBIN,TOTAL 0.4 mg/dL (0.2-1); TOT PROT 6.7 g/dl (6.4-8.2)
[2022-07-19] MEDS ORDERED: cloNIDine HCL 0.1 MG TABLET PO PRN (13:15)
[2022-07-19] MEDS: THIAMINE HCL 100 MG TABLET (FP) PO SCH (22:24)
[2022-07-19] MEDS: ACETAMINOPHEN 325 MG TABLET (FP) PO PRN (22:31)
[2022-07-20] MEDS ORDERED: BUPRENORPHINE HCL 150 MCG, BUPRENORPHINE HCL 75 MCG BC PRN
[2022-07-20] MEDS: diazePAM 5 MG TABLET PO PRN ×3 (05:25→18:31)
[2022-07-20] MEDS: BUPRENORPHINE HCL 150 MCG, BUPRENORPHINE HCL 75 MCG BC SCH ×2 (05:26→18:27)
[2022-07-20] MEDS: PRENATAL VITAMINS W/ FOLIC ACID TABLET (FP) PO SCH (10:06)
[2022-07-20] MEDS: ACETAMINOPHEN 325 MG TABLET (FP) PO PRN (13:33)
[2022-07-20] MEDS: THIAMINE HCL 100 MG TABLET (FP) PO SCH (23:17)
[2022-07-21] MEDS: diazePAM 5 MG TABLET PO PRN (05:53)
[2022-07-21] MEDS ORDERED: BUPRENORPHINE/NALOXONE 2 MG/0.5 MG FILM PACKET SL ONE (06:00)
[2022-07-21 06:05] VITALS: RESP 18
[2022-07-21 09:12] VITALS: BP 141/85; PULSE 62; TEMP 97
[2022-07-21] MEDS: PRENATAL VITAMINS W/ FOLIC ACID TABLET (FP) PO SCH (11:06)
[2022-07-22] MEDS ORDERED: BUPRENORPHINE/NALOXONE 4 MG/1 MG FILM PACKET SL SCH (06:00)
[2022-07-23] MEDS ORDERED: BUPRENORPHINE/NALOXONE 8 MG/2 MG FILM PACKET SL ONE (06:00)
== END 2022-07-21 09:19 | disposition left against medical advice (07) | DRG 770 ==
LOC: YASAS 14:11 → Y3N 16:54
PROVIDERS: ADMIT Allergy & Immunology; ATTEND Family Medicine
PROC: HZ2ZZZZ Detoxification Services for Substance Abuse Treatment (ICD-10-PCS; principal; 2022-07-18)
DX: F11.23 Opioid dependence with withdrawal (principal); F13.20 Sedative, hypnotic or anxiolytic dependence, uncomplicated; F14.20 Cocaine dependence, uncomplicated; F16.90 Hallucinogen use, unspecified, uncomplicated; F17.210 Nicotine dependence, cigarettes, uncomplicated; F41.9 Anxiety disorder, unspecified; F90.9 Attention-deficit hyperactivity disorder, unspecified type; Z86.19 Personal history of other infectious and parasitic diseases; Z88.0 Allergy status to penicillin
CPT/HCPCS: 36415; 80053; 85027; 86780; C9803-CS; U0003; U0005

== ENCOUNTER 2022-10-19 01:02 | Inpatient (IN) | payer OTHER ==
[2022-10-19 01:29] VITALS: BMI 28.7
[2022-10-19] MEDS ORDERED: IBUPROFEN 400 MG TABLET (FP) PO PRN (08:35)
[2022-10-19] MEDS ORDERED: NALOXONE HCL 0.4 MG/ML VIAL IM PRN (08:35)
[2022-10-19] MEDS ORDERED: LOPERAMIDE HCL 2 MG CAPSULE PO PRN (08:35)
[2022-10-19] MEDS ORDERED: NICOTINE 10 MG CARTRIDGE (INHALER) IH PRN (08:35)
[2022-10-19] MEDS ORDERED: DICYCLOMINE HCL 10 MG CAPSULE PO PRN (08:35)
[2022-10-19] MEDS ORDERED: BUPRENORPHINE HCL 150 MCG, BUPRENORPHINE HCL 75 MCG BC ONE (08:35)
[2022-10-19] MEDS ORDERED: NALOXONE HCL (KLOXXADO) 8 MG SPRAY NS PRN (08:35)
[2022-10-19] MEDS ORDERED: hydrOXYzine PAMOATE 25 MG CAPSULE (FP) PO PRN (08:35)
[2022-10-19] MEDS ORDERED: MAGNESIUM HYDROX 2400MG/30ML ORAL SUSPENSION 30 ML CUP PO PRN (08:35)
[2022-10-19] MEDS ORDERED: IBUPROFEN 600 MG TABLET (FP) PO PRN (08:35)
[2022-10-19] MEDS ORDERED: METHOCARBAMOL 500 MG TABLET PO PRN (08:35)
[2022-10-19] MEDS ORDERED: POLYETHYLENE GLYCOL (HEALTHYLAX) 3350 17 GM PACKET PO PRN (08:35)
[2022-10-19] MEDS ORDERED: MAG HYDROX/AL HYDROX/SIMETH 30 ML UNIT-DOSE CUP PO PRN (08:35)
[2022-10-19] MEDS ORDERED: ONDANSETRON *ODT* 4 MG TABLET SL PRN (08:35)
[2022-10-19] MEDS ORDERED: BISMUTH SUBSALICYLATE 524 MG/30 ML PO PRN (08:35)
[2022-10-19] MEDS ORDERED: BUPRENORPHINE HCL 150 MCG, BUPRENORPHINE HCL 75 MCG BC PRN (08:35)
[2022-10-19] MEDS ORDERED: BENZONATATE 200 MG CAPSULE PO PRN (08:35)
[2022-10-19] MEDS ORDERED: BENZOCAINE/MENTHOL (CHLORASEPTIC ) LOZENGE MM PRN (08:35)
[2022-10-19] MEDS ORDERED: guaiFENesin 600 MG TABLET.ER (FP) PO PRN (08:35)
[2022-10-19] MEDS ORDERED: cloNIDine HCL 0.1 MG TABLET PO ONE (09:15)
[2022-10-19] MEDS ORDERED: BUPRENORPHINE HCL 75 MCG FILM BC ONE (10:00)
[2022-10-19] MEDS: NICOTINE 14 MG/24 HOURS TOPICAL PATCH TD SCH (10:43)
[2022-10-19] MEDS: PRENATAL VITAMINS W/ FOLIC ACID TABLET (FP) PO SCH (10:44)
[2022-10-19] MEDS ORDERED: cloNIDine HCL 0.1 MG TABLET PO PRN (12:35)
[2022-10-19] MEDS: diazePAM 5 MG TABLET PO PRN ×2 (17:13→22:32)
[2022-10-19] MEDS: PATIENT'S OWN MEDICATION (NON-FORMULARY) (Sofosbuvir/Velpatasvir [Sofosbuvir-Velpatasvir 4 PO SCH (19:05)
[2022-10-19] MEDS ORDERED: MELATONIN 5 MG TABLETS PO SCH (22:00)
[2022-10-19] MEDS: THIAMINE HCL 100 MG TABLET (FP) PO SCH (22:32)
[2022-10-19] MEDS: MELATONIN 5 MG TABLETS PO SCH (22:33)
[2022-10-19] MEDS: ACETAMINOPHEN 325 MG TABLET (FP) PO PRN (22:33)
[2022-10-20] MEDS ORDERED: BUPRENORPHINE HCL 150 MCG, BUPRENORPHINE HCL 75 MCG BC PRN
[2022-10-20] MEDS: diazePAM 5 MG TABLET PO PRN ×3 (06:06→20:38)
[2022-10-20] MEDS: BUPRENORPHINE HCL 150 MCG, BUPRENORPHINE HCL 75 MCG BC SCH ×2 (06:07→17:26)
[2022-10-20] MEDS: NICOTINE 14 MG/24 HOURS TOPICAL PATCH TD SCH (10:24)
[2022-10-20] MEDS: PRENATAL VITAMINS W/ FOLIC ACID TABLET (FP) PO SCH (10:26)
[2022-10-20] MEDS: PATIENT'S OWN MEDICATION (NON-FORMULARY) (Sofosbuvir/Velpatasvir [Sofosbuvir-Velpatasvir 4 PO SCH (10:26)
[2022-10-20 11:15] LABS: HEMATOCRIT 38.1 % (35.4-49); HEMOGLOBIN 13.3 GM/dL (11.7-16.9); MCH 30.1 pg (25.7-33.7); MEAN CELL VOLUME 86.1 fl (80-96); MEAN PLT VOLUME 9.8 fl (7.5-11.1); PLATELET COUNT 244 10^3/uL (134-434); RBC 4.42 M/mm3 (4.00-5.60); WHITE BLOOD COUNT 8.1 K/mm3 (4.0-10.0)
[2022-10-20 11:17] LABS: POTASSIUM 4.1 mmol/L (3.5-5.1)
[2022-10-20 11:22] LABS: CALCIUM 8.6 mg/dL (8.5-10.1)
[2022-10-20 11:23] LABS: ALBUMIN 3.2 g/dl (3.4-5.0); BLOOD UREA NITROGEN 11.2 mg/dL (7-18)
[2022-10-20 11:26] LABS: CREATININE 0.7 mg/dL (0.55-1.3)
[2022-10-20 11:28] LABS: BILIRUBIN,TOTAL 0.5 mg/dL (0.2-1); TOT PROT 6.4 g/dl (6.4-8.2)
[2022-10-20 13:35] VITALS: RESP 18
[2022-10-20] MEDS: ACETAMINOPHEN 325 MG TABLET (FP) PO PRN (20:40)
[2022-10-20] MEDS: MELATONIN 5 MG TABLETS PO SCH (22:37)
[2022-10-20] MEDS: THIAMINE HCL 100 MG TABLET (FP) PO SCH (22:37)
[2022-10-21] MEDS ORDERED: BUPRENORPHINE HCL 450 MCG FILM BC SCH (06:00)
[2022-10-21 06:42] VITALS: BP 129/90; PULSE 93; TEMP 97.8
[2022-10-22] MEDS ORDERED: BUPRENORPHINE/NALOXONE 4 MG/1 MG FILM PACKET SL SCH (06:00)
[2022-10-23] MEDS ORDERED: BUPRENORPHINE/NALOXONE 8 MG/2 MG FILM PACKET SL ONE (06:00)
== END 2022-10-21 07:23 | disposition left against medical advice (07) | DRG 770 ==
LOC: YASAS 01:02 → Y6N 08:39
PROVIDERS: ADMIT Allergy & Immunology; ATTEND Surgery
PROC: HZ2ZZZZ Detoxification Services for Substance Abuse Treatment (ICD-10-PCS; principal; 2022-10-19)
DX: F11.23 Opioid dependence with withdrawal (principal); F14.20 Cocaine dependence, uncomplicated; F13.20 Sedative, hypnotic or anxiolytic dependence, uncomplicated; F12.20 Cannabis dependence, uncomplicated; F17.210 Nicotine dependence, cigarettes, uncomplicated; F19.282 Other psychoactive substance dependence with psychoactive substance-induced sleep disorder; F19.280 Other psychoactive substance dependence with psychoactive substance-induced anxiety disorder; F90.9 Attention-deficit hyperactivity disorder, unspecified type; F43.10 Post-traumatic stress disorder, unspecified; F41.9 Anxiety disorder, unspecified; B18.2 Chronic viral hepatitis C; Z62.810 Personal history of physical and sexual abuse in childhood; Z86.19 Personal history of other infectious and parasitic diseases; Z56.0 Unemployment, unspecified; Z59.01 Sheltered homelessness
CPT/HCPCS: 36415; 80053; 85027; 86780; 87811; 93005; 93010; C9803-CS; U0003; U0005

== ENCOUNTER 2023-06-08 17:18 | Inpatient (IN) | payer OTHER ==
[2023-06-08 18:43] VITALS: BMI 29.0
[2023-06-08] MEDS ORDERED: BENZONATATE 200 MG CAPSULE PO PRN (21:06)
[2023-06-08] MEDS ORDERED: BENZOCAINE/MENTHOL (CHLORASEPTIC ) LOZENGE MM PRN (21:06)
[2023-06-08] MEDS ORDERED: DICYCLOMINE HCL 10 MG CAPSULE PO PRN (21:06)
[2023-06-08] MEDS ORDERED: ONDANSETRON *ODT* 4 MG TABLET SL PRN (21:06)
[2023-06-08] MEDS ORDERED: guaiFENesin 600 MG TABLET.ER (FP) PO PRN (21:06)
[2023-06-08] MEDS ORDERED: hydrOXYzine PAMOATE 25 MG CAPSULE (FP) PO PRN (21:06)
[2023-06-08] MEDS ORDERED: NALOXONE HCL (KLOXXADO) 8 MG SPRAY NS PRN (21:06)
[2023-06-08] MEDS ORDERED: POLYETHYLENE GLYCOL (HEALTHYLAX) 3350 17 GM PACKET PO PRN (21:06)
[2023-06-08] MEDS ORDERED: MAGNESIUM HYDROX 2400MG/30ML ORAL SUSPENSION 30 ML CUP PO PRN (21:06)
[2023-06-08] MEDS ORDERED: IBUPROFEN 600 MG TABLET (FP) PO PRN (21:06)
[2023-06-08] MEDS ORDERED: IBUPROFEN 400 MG TABLET (FP) PO PRN (21:06)
[2023-06-08] MEDS ORDERED: NALOXONE HCL 0.4 MG/ML VIAL IM PRN (21:06)
[2023-06-08] MEDS ORDERED: MAG HYDROX/AL HYDROX/SIMETH 30 ML UNIT-DOSE CUP PO PRN (21:06)
[2023-06-08] MEDS ORDERED: BISMUTH SUBSALICYLATE 524 MG/30 ML PO PRN (21:06)
[2023-06-08] MEDS ORDERED: ACETAMINOPHEN 325 MG TABLET (FP) PO PRN (21:06)
[2023-06-08] MEDS ORDERED: LOPERAMIDE HCL 2 MG CAPSULE PO PRN (21:06)
[2023-06-08] MEDS: THIAMINE HCL 100 MG TABLET (FP) PO SCH (23:30)
[2023-06-08] MEDS: MELATONIN 5 MG TABLETS PO SCH (23:30)
[2023-06-09] MEDS ORDERED: BUPRENORPHINE HCL 150 MCG, BUPRENORPHINE HCL 75 MCG BC ONE (05:35)
[2023-06-09] MEDS ORDERED: cloNIDine HCL 0.1 MG TABLET PO ONE (05:35)
[2023-06-09] MEDS ORDERED: BUPRENORPHINE HCL 150 MCG, BUPRENORPHINE HCL 75 MCG BC PRN (05:35)
[2023-06-09] MEDS: METHOCARBAMOL 500 MG TABLET PO PRN ×2 (10:40→17:33)
[2023-06-09] MEDS: diazePAM 5 MG TABLET PO PRN ×2 (10:40→17:32)
[2023-06-09] MEDS: PRENATAL VITAMINS W/ FOLIC ACID TABLET (FP) PO SCH (10:40)
[2023-06-09 11:24] LABS: HEMATOCRIT 40.6 % (35.4-49); HEMOGLOBIN 13.7 GM/dL (11.7-16.9); MCH 28.8 pg (25.7-33.7); MCHC 33.7 g/dl (32.0-35.9); MEAN CELL VOLUME 85.4 fl (80-96); MEAN PLT VOLUME 10.3 fl (7.5-11.1); PLATELET COUNT 288 10^3/uL (134-434); RBC 4.75 M/mm3 (4.00-5.60); RDW 13.4 % (11.9-15.9); WHITE BLOOD COUNT 6.7 K/mm3 (4.0-10.0)
[2023-06-09 11:35] LABS: CHLORIDE 107 mmol/L (98-107); POTASSIUM 3.8 mmol/L (3.5-5.1); SODIUM 139 mmol/L (136-145)
[2023-06-09 11:41] LABS: ALBUMIN 3.2 g/dl (3.4-5.0); CALCIUM 8.4 mg/dL (8.5-10.1); GLUCOSE,RANDOM 111 mg/dL (74-106)
[2023-06-09 11:42] LABS: ANION GAP 4 mmol/L (4-13); BLOOD UREA NITROGEN 6.9 mg/dL (7-18); CO2 28 mmol/L (21-32)
[2023-06-09 11:45] LABS: CREATININE 0.8 mg/dL (0.55-1.3); SGOT/AST 32 U/L (15-37); SGPT/ALT 35 U/L (13-61)
[2023-06-09 11:46] LABS: BILIRUBIN,TOTAL 0.6 mg/dL (0.2-1)
[2023-06-09 11:47] LABS: ALK PHOS 51 U/L (45-117); TOT PROT 6.2 g/dl (6.4-8.2)
[2023-06-09] MEDS: MELATONIN 5 MG TABLETS PO SCH (22:52)
[2023-06-09] MEDS: THIAMINE HCL 100 MG TABLET (FP) PO SCH (22:52)
[2023-06-10] MEDS ORDERED: BUPRENORPHINE HCL 150 MCG, BUPRENORPHINE HCL 75 MCG BC PRN
[2023-06-10] MEDS: BUPRENORPHINE HCL 150 MCG, BUPRENORPHINE HCL 75 MCG BC SCH ×2 (06:25→18:09)
[2023-06-10] MEDS: PRENATAL VITAMINS W/ FOLIC ACID TABLET (FP) PO SCH (10:28)
[2023-06-10] MEDS: METHOCARBAMOL 500 MG TABLET PO PRN (10:28)
[2023-06-10] MEDS: diazePAM 5 MG TABLET PO PRN (10:28)
[2023-06-10] MEDS: cloNIDine HCL 0.1 MG TABLET PO PRN (10:28)
[2023-06-10] MEDS: THIAMINE HCL 100 MG TABLET (FP) PO SCH (23:36)
[2023-06-10] MEDS: MELATONIN 5 MG TABLETS PO SCH (23:36)
[2023-06-11] MEDS ORDERED: BUPRENORPHINE HCL 450 MCG FILM BC SCH (06:00)
[2023-06-11] MEDS: METHOCARBAMOL 500 MG TABLET PO PRN (09:32)
[2023-06-11] MEDS: cloNIDine HCL 0.1 MG TABLET PO PRN ×2 (09:32→13:51)
[2023-06-11] MEDS: PRENATAL VITAMINS W/ FOLIC ACID TABLET (FP) PO SCH (09:33)
[2023-06-11 13:37] VITALS: BP 145/83; PULSE 95; RESP 18; TEMP 98.7
[2023-06-11] MEDS ORDERED: diazePAM 5 MG TABLET PO PRN (14:29)
[2023-06-12] MEDS ORDERED: BUPRENORPHINE/NALOXONE 4 MG/1 MG FILM PACKET SL SCH (06:00)
[2023-06-13] MEDS ORDERED: BUPRENORPHINE/NALOXONE 8 MG/2 MG FILM PACKET SL ONE (06:00)
== END 2023-06-11 15:03 | disposition left against medical advice (07) | DRG 770 ==
LOC: YASAS 17:18 → Y6N 22:41
PROVIDERS: ADMIT Allergy & Immunology; ATTEND Surgery
PROC: HZ2ZZZZ Detoxification Services for Substance Abuse Treatment (ICD-10-PCS; principal; 2023-06-08)
DX: F11.23 Opioid dependence with withdrawal (principal); F13.20 Sedative, hypnotic or anxiolytic dependence, uncomplicated; F14.20 Cocaine dependence, uncomplicated; F12.20 Cannabis dependence, uncomplicated; F17.210 Nicotine dependence, cigarettes, uncomplicated; F41.9 Anxiety disorder, unspecified; B18.2 Chronic viral hepatitis C; Z86.19 Personal history of other infectious and parasitic diseases; Z88.0 Allergy status to penicillin; Z88.6 Allergy status to analgesic agent; Z56.0 Unemployment, unspecified; Z59.00 Homelessness unspecified
CPT/HCPCS: 36415; 80053; 80307; 85027; 86780; 87635; 93005; 93010